=== PATIENT | male | born 1930 | race Caucasian/White ===

== ENCOUNTER → 2017-12-28 | Outpatient (CLI) | payer MEDICARE ==
--- NOTE | 2017-12-28 11:30 | CT ---
EXAMINATION TYPE: CT abdomen pelvis wo con DATE OF EXAM: 12/28/2017 HISTORY: Lt lower pelvic pain CT DLP: 613 mGycm. Automated Exposure Control for Dose Reduction was Utilized. TECHNIQUE: CT scan of the abdomen and pelvis is performed with oral but without IV contrast. COMPARISON: CT abdomen and pelvis October 23, 2014 FINDINGS: Within the limitations of a non-contrast study, the following observations are made. LUNG BASES: There is anterior right basilar linear scarring with tiny nodularity redemonstrated uncha nged from prior. There is prominent three-vessel coronary artery calcification and/or stents redemons trated. LIVER/GB: Cholecystectomy clips are redemonstrated. PANCREAS: No significant abnormality is seen. SPLEEN: No significant abnormality is seen. ADRENALS: No significant abnormality is seen. KIDNEYS: There is persistent asymmetric cortical thinning in the right kidney. There is new 1.3 cm ro und hyperdense focus axial image 40 favoring proteinaceous cyst. There is stable 1.4 cm simple appea ring cyst exophytically from upper pole left kidney seen coronal image 62. There is persistent oval exophytic thin-walled lesion anterior to left kidney measuring 8.0 cm long a xis, Hounsfield units average 18 appears to have distinct fat plane from adjacent kidney. Favor pancr eatic pseudocyst or duplication cyst. Slightly enlarged versus prior. BOWEL: The oral contrast reaches level proximal sigmoid colon. There is no suspicious small or large bowel dilatation. There are diverticula in the proximal sigmoid colon. There is no CT evidence for ac [place] diverticulitis. GENITAL ORGANS: Prostate gland is enlarged bulging on bladder base consistent with BPH. Correlate cli nically. Adjacent pelvic phleboliths are present. LYMPH NODES: No greater than 1cm abdominal or pelvic lymph nodes are appreciated. OSSEOUS STRUCTURES: There is redemonstration of posterior fusion hardware lower lumbar spine. There i s slight spondylolisthesis at this level redemonstrated. OTHER: There is moderate to severe calcified plaque of aorta extending into branch vessels. IMPRESSION: Colonic diverticulosis without CT evidence for acute diverticulitis. No significant new o r acute finding identified to account for patient's symptoms
== END | disposition home or self-care (01) ==
LOC: RADCTMAIN 09:12
PROVIDERS: ATTEND Family Medicine
DX: K57.30 Diverticulosis of large intestine without perforation or abscess without bleeding (principal)
CPT/HCPCS: 74176

== ENCOUNTER 2018-03-18 19:13 | Emergency (ER) | payer MEDICARE ==
[2018-03-18] MEDS ORDERED: diphenhydrAMINE 50 MG/ML 1 ML VIAL IVP STA (19:30)
[2018-03-18] MEDS ORDERED: methylPREDNISolone SOD SUCCI 125 MG/2 ML VIAL IV STA (19:30)
[2018-03-18] MEDS ORDERED: FAMOTIDINE 20 MG/2 ML VIAL IV STA (19:30)
--- NOTE | 2018-03-18 19:53 | ED ---
General Adult HPI - General Chief complaint: Skin/Abscess/Foreign Body Stated complaint: Insect sting Time Seen by Provider: 03/18/18 19:30 Source: patient Mode of arrival: wheelchair Limitations: no limitations - History of Present Illness Initial comments: Patient is an 88-year-old male presenting for bee stings. The patient states that just prior to arrival, he was in his yard working when nearly 30 bees stung him on the right hand and arm. He denies any shortness of breath, throat swelling, difficulty breathing, difficulty swallowing, wheezing and decided to come in. Additionally, he states that he fell earlier today after he tripped on an object landing on his buttocks. He denies any head trauma as well as significant back pain but states that the majority of his pain is off to the left side of his lower back. He has been able to ambulate since that fall. - Related Data Home Medications Medication Instructions Recorded Confirmed Pramipexole [Mirapex] 0.5 mg PO HS 09/28/15 06/21/16 Terazosin HCl 5 mg PO BID 09/28/15 06/21/16 HYDROcodone/APAP 10-325MG [[place] 1 tab PO Q6H PRN 10/14/15 06/21/16 10-325] Insulin Glargine [Lantus] 10 - 12 unit SQ HS 10/14/15 06/21/16 rOPINIRole HCL [Requip] 0.5 mg PO HS 10/14/15 06/21/16 Aspirin 81 mg PO DAILY 06/21/16 06/21/16 Fenofibrate Nanocrystallized 145 mg PO DAILY 06/21/16 06/21/16 [Fenofibrate] Levothyroxine Sodium [Synthroid] 100 mcg PO QAM 06/21/16 06/21/16 Metoprolol Tartrate [Lopressor] 25 mg PO BID 06/21/16 06/21/16 glipiZIDE [Glucotrol] 10 mg PO AC-BID 06/21/16 06/21/16 Previous Rx's Medication Instructions Recorded Nitroglycerin Sl Tabs [Nitrostat] 0.4 mg SUBLINGUAL Q5M PRN #0 tab 12/29/15 Lisinopril [Prinivil] 20 mg PO DAILY #30 tablet 06/23/16 Metoprolol Tartrate [Lopressor] 12.5 mg PO BID #30 tab 06/23/16 EPINEPHrine (Auto Inject) [Epipen] 0.3 mg IM ONCE PRN #2 syringe 03/18/18 predniSONE 50 mg PO DAILY #5 tablet 03/18/18 Allergies Allergy/AdvReac Type Severity Reaction Status Date / Time hydromorphone HCl Allergy Dyspnea Verified 03/18/18 19:22 [From Dilaudid] and Rash Review of Systems ROS Statement: Those systems with pertinent positive or pertinent negative responses have been documented in the HPI. Constitutional: Negative for chills, fatigue and fever. HENT: Negative for congestion. Respiratory: Negative for chest tightness, shortness of breath and wheezing. Negative for cough Cardiovascular: Negative for chest pain and palpitations. Gastrointestinal: Negative for abdominal pain. Negative for abdominal distention , diarrhea, nausea and vomiting. Genitourinary: Negative for dysuria. Musculoskeletal: Negative for back pain, neck pain and neck stiffness. Skin: Positive for erythema of the right lower hand and swelling Neurological: Negative for dizziness, speech difficulty, weakness and light- headedness. Psychiatric/Behavioral: Negative for agitation and confusion. Negative for anxiety ROS Other: All systems not noted in ROS Statement are negative. Past Medical History Past Medical History: Atrial Fibrillation, Chest Pain / Angina, Diabetes Mellitus, Hypertension, Myocardial Infarction ([place]) Additional Past Medical History / Comment(s): [place] with stent, Last Myocardial Infarction Date:: 2011 History of Any Multi-Drug Resistant Organisms: None Reported Past Surgical History: Adenoidectomy, Appendectomy, Back Surgery, Cholecystectomy, Heart Catheterization With Stent, Orthopedic Surgery Additional Past Surgical History / Comment(s): right carotid endarterectomy Past Anesthesia/Blood Transfusion Reactions: No Reported Reaction Date of Last Stent Placement:: 2011 Past Psychological History: No Psychological Hx Reported Smoking Status: Former smoker Past Alcohol Use History: None Reported Past Drug Use History: None Reported - Past Family History Mother Family Medical History: AFIB Brother(s) Family Medical History: COPD General Exam - General Exam Comments Initial Comments: Constitutional: Pt is oriented to person, place, and time. Pt appears well- developed and well-nourished. No distress. Mouth: No edema or swelling of the oropharynx or tongue/lips Head: Normocephalic and atraumatic. Eyes: EOM are normal. Neck: Normal range of motion. Neck supple. Cardiovascular: Normal rate, regular rhythm, S1 normal, S2 normal and normal heart sounds. Exam reveals no gallop and no friction rub. No murmur heard. Pulmonary/Chest: Effort normal and breath sounds normal. No tachypnea and no bradypnea. No respiratory distress. No wheezes or rales noted. Abdominal: Soft. Bowel sounds are normal. Pt exhibits no shifting dullness, no distension, no pulsatile liver, no fluid wave, no abdominal bruit and no ascites. There is no tenderness. There is no rigidity, no rebound, no guarding, no tenderness at McBurney's point and negative Zepeda's sign. Musculoskeletal: Normal range of motion. Neurological: Pt is alert and oriented to person, place, and time. No cranial nerve deficit. Skin: Skin is warm and dry. No rash noted. Pt is not diaphoretic. There is diffuse erythema and effusion of the right lower arm with mild streaking on the anterior aspect of the right arm. Psychiatric: Pt has a normal mood and affect. Pt behavior is normal. Thought content normal. Limitations: no limitations Course Vital Signs 03/18/18 03/18/18 03/18/18 19:19 21:04 21:30 Temperature 97.9 F 98.2 F Pulse Rate 61 67 Respiratory 18 17 Rate Blood Pressure 154/69 157/99 O2 Sat by Pulse 100 98 Oximetry Medical Decision Making - Medical Decision Making Patient was given Solu-Medrol, Benadryl, Pepcid and noted to have significant improvement in the swelling of the right hand and erythema significantly decreased. Because the patient had no respiratory symptoms, it was felt that the patient could be safely discharged home with a prescription for prednisone as well as epinephrine pens. Daughter was bedside for this discussion and also felt comfortable taking the patient home. Patient was advised to follow the PCP in the next 1-2 days and/or return to emergency department if he develops worsening symptoms or respiratory symptoms as well. Patient was agreeable to plan. Disposition Clinical Impression: Allergic reaction, Bee sting reaction Disposition: HOME SELF-CARE Condition: Good Instructions: General Allergic Reaction (ED) Prescriptions: EPINEPHrine (Auto Inject) [Epipen] 0.3 mg IM ONCE PRN #2 syringe PRN Reason: Anaphylaxis predniSONE 50 mg PO DAILY #5 tablet Is patient prescribed a controlled substance at d/c from ED?: No Referrals: None,Stated [Primary Care Provider] - 1-2 days Time of Disposition: 21:20
--- NOTE | 2018-03-18 20:36 | XR ---
EXAMINATION TYPE: XR Hip Complete LT DATE OF EXAM: 03/18/2018 CLINICAL HISTORY: Lower back pain and left hip pain TECHNIQUE: AP and frogleg views of the left hip are obtained. COMPARISON: None. FINDINGS: There is no acute fracture/dislocation evident in the left hip. The joint space in the le ft hip displays moderate arthropathy with subchondral cysts, joint space narrowing and acetabular mariah f sclerosis. The overlying soft tissue appears unremarkable. Cam deformity of the left femoral head neck junction is seen as an osseous protuberance. Partial visualization of postsurgical changes of th e lumbosacral spine are noted. IMPRESSION: There is no acute fracture or dislocation in the left hip. Moderate left femoral acetabu lar arthropathy. Left femoral head neck junction cam deformity that predisposes the patient to rn international al impingement syndrome.
--- NOTE | 2018-03-18 20:38 | XR ---
EXAMINATION TYPE: XR lumbar spine 2 or 3V DATE OF EXAM: 03/18/2018 CLINICAL HISTORY: Back pain TECHNIQUE: Frontal and lateral images of the lumbar spine are obtained. COMPARISON: CT abdomen pelvis dated 12/28/2017 FINDINGS: There are 5 lumbar type vertebral bodies identified. Postsurgical changes at L5-S1 are see n with posterior element resection. There is a mild dextroscoliotic curvature of the lumbar spine. Th ere is diffuse osseous demineralization, specifically limiting evaluation of the lower thoracic spine . If there is point tenderness in the thoracic spine additional radiograph could be performed. There is a 1 anterolisthesis of L5 on S1, surgically fixated. Multilevel moderate degenerative change of the lumbar spine is demonstrated as endplate sclerosis, facet arthropathy, intervertebral disc sp torin narrowing and small anterior osteophytes. Extensive vascular calcifications are seen of the abdom inal aorta and its branches. Cholecystectomy clips reside within the right upper quadrant. The lumbar spine shows satisfactory alignment without evidence of acute fracture or dislocation. Vertebral body heights and disk space heights are within normal limits. IMPRESSION: No acute fracture or dislocation is seen in the lumbar spine. Surgically fixated malalig nment of L5-S1. Diffuse osseous demineralization. Multilevel moderate degenerative disc disease.
[2018-03-18 21:06] VITALS: BP 157/99; PULSE 67; RESP 17
[2018-03-18 21:31] VITALS: TEMP 98.2
== END 2018-03-18 21:34 | disposition home or self-care (01) ==
LOC: EC 19:13
DX: T63.441A Toxic effect of venom of bees, accidental (unintentional), initial encounter (principal); M54.5 Low back pain; E11.9 Type 2 diabetes mellitus without complications; I10 Essential (primary) hypertension; I25.2 Old myocardial infarction; Z87.891 Personal history of nicotine dependence; Z79.4 Long term (current) use of insulin; Z79.82 Long term (current) use of aspirin; Z79.899 Other long term (current) drug therapy; Z88.5 Allergy status to narcotic agent; Z95.5 Presence of coronary angioplasty implant and graft; Z98.890 Other specified postprocedural states; W18.09XA Striking against other object with subsequent fall, initial encounter
CPT/HCPCS: 72100; 73502; 99282; 96374; 96375 ×2; J1200; J2930

== ENCOUNTER 2018-07-07 15:14 | Emergency (ER) | payer MEDICARE ==
--- NOTE | 2018-07-07 16:14 | XR ---
EXAMINATION TYPE: XR shoulder complete LT DATE OF EXAM: 07/07/2018 CLINICAL HISTORY: pain COMPARISON: NONE TECHNIQUE: Three views of the left shoulder are obtained. FINDINGS: There is no acute fracture/dislocation evident. The acromioclavicular and glenohumeral katelyn int spaces appear moderately narrowed. The visualized ribs are intact and unremarkable. IMPRESSION: 1. There is no acute fracture or dislocation. ICD 10 NO FRACTURE, INITIAL EVALUATION
--- NOTE | 2018-07-07 17:20 | ED ---
General Adult HPI - General Chief complaint: Fall Stated complaint: Fall, shoulder pain Time Seen by Provider: 07/07/18 16:24 Source: patient, RN notes reviewed Mode of arrival: wheelchair Limitations: no limitations - History of Present Illness Initial comments: Patient's an 88-year-old male presents to the emergency room today with a chief complaint fall that occurred earlier today. Patient does smoke approximately 2 hours prior to arrival slipped on some ice and fell down landing on the left shoulder hitting left side of his head. Patient states he did not lose consciousness. Patient denies any headache. Patient does admit to pain in the left shoulder is worse with any movements of flexion and extension. He denies any other complaints or symptoms. Patient denies any recent fever, chills, shortness of breath, chest pain, back pain, abdominal pain, nausea or vomiting, numbness or tingling, headaches or visual changes, or any other complaints. - Related Data Home Medications Medication Instructions Recorded Confirmed Pramipexole [Mirapex] 0.5 mg PO HS 09/28/15 06/21/16 Terazosin HCl 5 mg PO BID 09/28/15 06/21/16 HYDROcodone/APAP 10-325MG [[place] 1 tab PO Q6H PRN 10/14/15 06/21/16 10-325] Insulin Glargine [Lantus] 10 - 12 unit SQ HS 10/14/15 06/21/16 rOPINIRole HCL [Requip] 0.5 mg PO HS 10/14/15 06/21/16 Aspirin 81 mg PO DAILY 06/21/16 06/21/16 Fenofibrate Nanocrystallized 145 mg PO DAILY 06/21/16 06/21/16 [Fenofibrate] Levothyroxine Sodium [Synthroid] 100 mcg PO QAM 06/21/16 06/21/16 Metoprolol Tartrate [Lopressor] 25 mg PO BID 06/21/16 06/21/16 glipiZIDE [Glucotrol] 10 mg PO AC-BID 06/21/16 06/21/16 Previous Rx's Medication Instructions Recorded Nitroglycerin Sl Tabs [Nitrostat] 0.4 mg SUBLINGUAL Q5M PRN #0 tab 12/29/15 Lisinopril [Prinivil] 20 mg PO DAILY #30 tablet 06/23/16 Metoprolol Tartrate [Lopressor] 12.5 mg PO BID #30 tab 06/23/16 EPINEPHrine (Auto Inject) [Epipen] 0.3 mg IM ONCE PRN #2 syringe 03/18/18 predniSONE 50 mg PO DAILY #5 tablet 03/18/18 Allergies Allergy/AdvReac Type Severity Reaction Status Date / Time hydromorphone HCl Allergy Dyspnea Verified 07/07/18 15:37 [From Dilaudid] and Rash Review of Systems ROS Statement: Those systems with pertinent positive or pertinent negative responses have been documented in the HPI. ROS Other: All systems not noted in ROS Statement are negative. Past Medical History Past Medical History: Atrial Fibrillation, Chest Pain / Angina, Diabetes Mellitus, Hypertension, Myocardial Infarction ([place]) Additional Past Medical History / Comment(s): [place] with stent, Last Myocardial Infarction Date:: 2011 History of Any Multi-Drug Resistant Organisms: None Reported Past Surgical History: Adenoidectomy, Appendectomy, Back Surgery, Cholecystectomy, Heart Catheterization With Stent, Orthopedic Surgery Additional Past Surgical History / Comment(s): right carotid endarterectomy Past Anesthesia/Blood Transfusion Reactions: No Reported Reaction Date of Last Stent Placement:: 2011 Past Psychological History: No Psychological Hx Reported Smoking Status: Former smoker Past Alcohol Use History: None Reported Past Drug Use History: None Reported - Past Family History Mother Family Medical History: AFIB Brother(s) Family Medical History: COPD General Exam - General Exam Comments Initial Comments: General: The patient is awake and alert, in no distress, and does not appear acutely ill. Eye: Pupils are equal, round and reactive to light. Extra-ocular movements are intact. No nystagmus. There is normal conjunctiva bilaterally. No signs of icterus. Ears, nose, mouth and throat: There are moist mucous membranes and no oral lesions. Neck: The neck is supple, there is no tenderness or JVD. Cardiovascular: There is a regular rate and rhythm. No murmur, rub or gallop is appreciated. Respiratory: Lungs are clear to auscultation, respirations are non-labored, breath sounds are equal. No wheezes, stridor, rales, or rhonchi. Musculoskeletal: She does have some bruising over the lateral aspect of left shoulder. He shows limited range of motion with flexion and extension due to pain. Patient has no tenderness to the cervical, thoracic or lumbar spine. No step-off deformity appreciated. No tenderness to the ribs. Shows full range of motion of his neck. Sensations are intact. Radial pulses 2+. Strength to the left shoulder unable be assessed due to pain. Neurological: A&O x 3. CN II-XII intact, There are no obvious motor or sensory deficits. Coordination appears grossly intact. Speech is normal. Skin: Skin is warm and dry and no rashes or lesions are noted. Psychiatric: Cooperative, appropriate mood & affect, normal judgment. Limitations: no limitations Course Vital Signs 07/07/18 15:35 Temperature 98.4 F Pulse Rate 75 Respiratory 16 Rate Blood Pressure 140/70 O2 Sat by Pulse 94 L Oximetry Medical Decision Making - Medical Decision Making Patient reexamined at this time. Shortness of distress. CT of the head and neck negative for any acute abnormality. X-ray of the left shoulder is negative. Results were discussed with patient. He'll be given an arm sling for comfort. He is going to orthopedics for further evaluation of the left shoulder. Advised ice affected area. Advised return for any other concerns Disposition Clinical Impression: Fall, Injury of left shoulder Disposition: HOME SELF-CARE Condition: Good Instructions: Rotator Cuff Injury (ED) Additional Instructions: Please use medication as discussed. Please follow-up with orthopedic/family doctor in the next 2 days of symptoms have not improved. Please return to emergency room if the symptoms increase or worsen or for any other concerns. Is patient prescribed a controlled substance at d/c from ED?: No Referrals: None,Stated [Primary Care Provider] - 1-2 days Marcial Thompson DO [Doctor of Osteopathic Medicine] - 1-2 days Time of Disposition: 18:05
--- NOTE | 2018-07-07 17:36 | CT ---
EXAMINATION TYPE: CT brain federico baez DATE OF EXAM: 07/07/2018 COMPARISON: None HISTORY: Fall headache. Neck pain. CT DLP: 1016.8 mGycm Automated exposure control for dose reduction was used. TECHNIQUE: CT scan of the head and cervical spine are performed without contrast. FINDINGS: There is diffuse cerebral cortical atrophy. There is no mass effect nor midline shift. Th ere is no sign of intracranial hemorrhage. The calvarium is intact. Cervical vertebra have normal alignment. Disc spaces are fairly normal for age. There is mild spurrin g of the endplates. Posterior elements are intact. The skull base is intact. There is no evidence of cervical spine fracture. IMPRESSION: Cerebral atrophy. No acute intracranial abnormality. Minor degenerative disc changes in the cervical spine. No fracture.
[2018-07-07 18:32] VITALS: BP 179/79; PULSE 67; RESP 18; TEMP 99.1
== END 2018-07-07 18:31 | disposition home or self-care (01) ==
LOC: EC 15:14
DX: S40.012A Contusion of left shoulder, initial encounter (principal); I10 Essential (primary) hypertension; E11.9 Type 2 diabetes mellitus without complications; I48.91 Unspecified atrial fibrillation; I25.2 Old myocardial infarction; Z87.891 Personal history of nicotine dependence; Z88.5 Allergy status to narcotic agent; Z79.4 Long term (current) use of insulin; Z79.82 Long term (current) use of aspirin; Z79.899 Other long term (current) drug therapy; Z95.818 Presence of other cardiac implants and grafts; W00.0XXA Fall on same level due to ice and snow, initial encounter; Y92.89 Other specified places as the place of occurrence of the external cause
CPT/HCPCS: 70450; 72125; 99284

== ENCOUNTER 2019-03-01 19:39 | Emergency (ER) | payer MEDICARE ==
[2019-03-01 19:48] VITALS: TEMP 98.1
[2019-03-01 20:05] LABS: Glucose,Whole Blood 220 mg/dL (75-99)
--- NOTE | 2019-03-01 20:12 | ED ---
General Adult HPI - General Chief complaint: Fall Stated complaint: Fall, back pain, head injury Time Seen by Provider: 03/01/19 19:51 Source: patient, family, RN notes reviewed Mode of arrival: ambulatory Limitations: no limitations - History of Present Illness Initial comments: Patient is a pleasant 89-year-old male presenting to the emergency department following a fall. Patient fell approximately 2 steps. Patient did strike his head however did not lose consciousness. No headache. No weakness or change in mental status. Patient also struck his back. Patient states he did have some lower back discomfort however that has resolved. Patient still has some discomfort of his mid back, between the shoulder blades. Patient states this hurts with movement and deep breaths. Patient denies any chest discomfort. No abdominal pain. No neck pain. Patient does take Eliquis due to history of atrial fibrillation. - Related Data Home Medications Medication Instructions Recorded Confirmed Pramipexole [Mirapex] 0.5 mg PO HS 09/28/15 03/01/19 Insulin Glargine [Lantus] 10 unit SQ HS 10/14/15 03/01/19 Aspirin 81 mg PO DAILY 06/21/16 03/01/19 Metoprolol Tartrate [Lopressor] 25 mg PO BID 06/21/16 03/01/19 glipiZIDE [Glucotrol] 10 mg PO AC-BID 06/21/16 03/01/19 Apixaban [Eliquis] 2.5 mg PO BID 03/01/19 03/01/19 Gemfibrozil [Lopid] 600 mg PO BID 03/01/19 03/01/19 Levothyroxine Sodium 112 mcg PO DAILY 03/01/19 03/01/19 Lisinopril-Hctz 20-25 mg 1 tab PO DAILY 03/01/19 03/01/19 [Zestoretic 20-25] Tamsulosin HCl [Flomax] 0.4 mg PO DAILY 03/01/19 03/01/19 Previous Rx's Medication Instructions Recorded Nitroglycerin Sl Tabs [Nitrostat] 0.4 mg SUBLINGUAL Q5M PRN #0 tab 12/29/15 EPINEPHrine (Auto Inject) [Epipen] 0.3 mg IM ONCE PRN #2 syringe 03/18/18 Allergies Allergy/AdvReac Type Severity Reaction Status Date / Time hydromorphone HCl Allergy Dyspnea Verified 03/01/19 21:14 [From Dilaudid] and Rash Review of Systems ROS Statement: Those systems with pertinent positive or pertinent negative responses have been documented in the HPI. ROS Other: All systems not noted in ROS Statement are negative. Constitutional: Denies: fever Eyes: Denies: eye pain ENT: Denies: ear pain Respiratory: Denies: cough Cardiovascular: Denies: chest pain Endocrine: Denies: fatigue Gastrointestinal: Denies: abdominal pain Genitourinary: Denies: dysuria Musculoskeletal: Reports: as per HPI Skin: Denies: rash Neurological: Denies: weakness Past Medical History Past Medical History: Atrial Fibrillation, Chest Pain / Angina, Diabetes Cami litus, Hypertension, Myocardial Infarction (MT) Additional Past Medical History / Comment(s): MT with stent, Last Myocardial Infarction Date:: 2011 History of Any Multi-Drug Resistant Organisms: None Reported Past Surgical History: Adenoidectomy, Appendectomy, Back Surgery, Cholecystectomy, Heart Catheterization With Stent, Orthopedic Surgery Additional Past Surgical History / Comment(s): right carotid endarterectomy Past Anesthesia/Blood Transfusion Reactions: No Reported Reaction Date of Last Stent Placement:: 2011 Past Psychological History: No Psychological Hx Reported Smoking Status: Former smoker Past Alcohol Use History: None Reported Past Drug Use History: None Reported - Past Family History Mother Family Medical History: AFIB Brother(s) Family Medical History: COPD General Exam Limitations: no limitations General appearance: alert, in no apparent distress Head exam: Present: atraumatic Eye exam: Present: normal appearance, PERRL, EOMI. Absent: nystagmus ENT exam: Present: normal oropharynx Neck exam: Present: normal inspection. Absent: tenderness Respiratory exam: Present: normal lung sounds bilaterally Cardiovascular Exam: Present: regular rate, normal rhythm GI/Abdominal exam: Present: soft. Absent: distended, tenderness Extremities exam: Present: normal inspection, full ROM. Absent: tenderness Back exam: Present: normal inspection. Absent: tenderness, vertebral tenderness Neurological exam: Present: alert, CN II-XII intact. Absent: motor sensory deficit Expanded Neurological exam: Present: protecting the airway Patient oriented to: Absent: time (Family states this is normal) Speech: Present: fluid speech Cranial nerves: EOM's Intact: Normal Motor strength exam: RUE: 5, LUE: 5, RLE: 5, LLE: 5 Eye Response: (4) open spontaneously Motor Response: (6) obeys commands Verbal Response: (4) confused conversation Psychiatric exam: Present: normal affect, normal mood Skin exam: Present: normal color Course Vital Signs 03/01/19 19:44 Temperature 98.1 F Pulse Rate 73 Respiratory 18 Rate Blood Pressure 162/83 O2 Sat by Pulse 96 Oximetry - Reevaluation(s) Reevaluation #1: 03/01/19 20:07 Case was discussed with Dr. Rebollar. EKG Findings - EKG Comments: EKG Findings:: Sinus bradycardia 59. MS 172. QRS 88. QT 396. QTc 392. Normal axis. Normal QRS. Nonspecific ST-T. Medical Decision Making - Medical Decision Making Patient reevaluated and resting comfortably in bed. Patient and family updated on results. - Lab Data Result diagrams: 03/01/19 20:00 03/01/19 20:00 Lab Results 03/01/19 03/01/19 03/01/19 Range/Units 19:59 20:00 20:00 WBC 6.2 (3.8-10.6) k/uL RBC 3.99 L (4.30-5.90) m/uL Hgb 11.6 L (13.0-17.5) gm/dL Hct 34.0 L (39.0-53.0) % MCV 85.4 (80.0-100.0) fL MCH 29.1 (25.0-35.0) pg MCHC 34.1 (31.0-37.0) g/dL RDW 13.2 (11.5-15.5) % Plt Count 283 (150-450) k/uL Neutrophils % 62 % Lymphocytes % 27 % Monocytes % 6 % Eosinophils % 1 % Basophils % 1 % Neutrophils # 3.9 (1.3-7.7) k/uL Lymphocytes # 1.7 (1.0-4.8) k/uL Monocytes # 0.4 (0-1.0) k/uL Eosinophils # 0.1 (0-0.7) k/uL Basophils # 0.0 (0-0.2) k/uL PT (9.0-12.0) sec INR (<1.2) APTT (22.0-30.0) sec Sodium 137 (137-145) mmol/L Potassium 4.1 (3.5-5.1) mmol/L Chloride 103 (98-107) mmol/L Carbon Dioxide 20 L (22-30) mmol/L Anion Gap 14 mmol/L BUN 38 H (9-20) mg/dL Creatinine 1.62 H (0.66-1.25) mg/dL Est GFR (CKD-EPI)AfAm 43 (>60 ml/min/1.73 sqM) Est GFR (CKD-EPI)NonAf 37 (>60 ml/min/1.73 sqM) Glucose 193 H (74-99) mg/dL POC Glucose (mg/dL) 220 H (75-99) mg/dL POC Glu [employer]ating [employer] ID Ronan Morris Plasma Lactic Acid Oswald (0.7-2.0) mmol/L Calcium 10.1 (8.4-10.2) mg/dL Total Bilirubin 0.4 (0.2-1.3) mg/dL AST 18 (17-59) U/L ALT 21 (21-72) U/L Alkaline Phosphatase 79 (38-126) U/L Total Creatine Kinase (55-170) U/L CK-MB (CK-2) (0.0-2.4) ng/mL CK-MB (CK-2) Rel Index Troponin I (0.000-0.034) ng/mL Total Protein 7.2 (6.3-8.2) g/dL Albumin 4.6 (3.5-5.0) g/dL Amylase 59 (30-110) U/L Lipase 147 (23-300) U/L Serum Alcohol <10 mg/dL Blood Type Blood Type Confirm Blood Type Recheck Antibody Screen Spec Expiration Date 03/01/19 03/01/19 03/01/19 Range/Units 20:00 20:00 20:00 WBC (3.8-10.6) k/uL RBC (4.30-5.90) m/uL Hgb (13.0-17.5) gm/dL Hct (39.0-53.0) % MCV (80.0-100.0) fL MCH (25.0-35.0) pg MCHC (31.0-37.0) g/dL RDW (11.5-15.5) % Plt Count (150-450) k/uL Neutrophils % % Lymphocytes % % Monocytes % % Eosinophils % % Basophils % % Neutrophils # (1.3-7.7) k/uL Lymphocytes # (1.0-4.8) k/uL Monocytes # (0-1.0) k/uL Eosinophils # (0-0.7) k/uL Basophils # (0-0.2) k/uL PT 9.6 (9.0-12.0) sec INR 0.9 (<1.2) APTT 23.4 (22.0-30.0) sec Sodium (137-145) mmol/L Potassium (3.5-5.1) mmol/L Chloride (98-107) mmol/L Carbon Dioxide (22-30) mmol/L Anion Gap mmol/L BUN (9-20) mg/dL Creatinine (0.66-1.25) mg/dL Est GFR (CKD-EPI)AfAm (>60 ml/min/1.73 sqM) Est GFR (CKD-EPI)NonAf (>60 ml/min/1.73 sqM) Glucose (74-99) mg/dL POC Glucose (mg/dL) (75-99) mg/dL POC Glu Imp[employer]ating Tank Operator ID Plasma Lactic Acid Oswald (0.7-2.0) mmol/L Calcium (8.4-10.2) mg/dL Total Bilirubin (0.2-1.3) mg/dL AST (17-59) U/L ALT (21-72) U/L Alkaline Phosphatase (38-126) U/L Total Creatine Kinase 99 (55-170) U/L CK-MB (CK-2) 1.7 (0.0-2.4) ng/mL CK-MB (CK-2) Rel Index 1.7 Troponin I <0.012 (0.000-0.034) ng/mL Total Protein (6.3-8.2) g/dL Albumin (3.5-5.0) g/dL Amylase (30-110) U/L Lipase (23-300) U/L Serum Alcohol mg/dL Blood Type A Positive Blood Type Confirm Blood Type Recheck CABO Indicated Antibody Screen NEGATIVE Spec Expiration Date 03/04/2019 - 2300 07/11/19 07/11/19 Range/Units 20:00 20:05 WBC (3.8-10.6) k/uL RBC (4.30-5.90) m/uL Hgb (13.0-17.5) gm/dL Hct (39.0-53.0) % MCV (80.0-100.0) fL MCH (25.0-35.0) pg MCHC (31.0-37.0) g/dL RDW (11.5-15.5) % Plt Count (150-450) k/uL Neutrophils % % Lymphocytes % % Monocytes % % Eosinophils % % Basophils % % Neutrophils # (1.3-7.7) k/uL Lymphocytes # (1.0-4.8) k/uL Monocytes # (0-1.0) k/uL Eosinophils # (0-0.7) k/uL Basophils # (0-0.2) k/uL PT (9.0-12.0) sec INR (<1.2) APTT (22.0-30.0) sec Sodium (137-145) mmol/L Potassium (3.5-5.1) mmol/L Chloride (98-107) mmol/L Carbon Dioxide (22-30) mmol/L Anion Gap mmol/L BUN (9-20) mg/dL Creatinine (0.66-1.25) mg/dL Est GFR (CKD-EPI)AfAm (>60 ml/min/1.73 sqM) Est GFR (CKD-EPI)NonAf (>60 ml/min/1.73 sqM) Glucose (74-99) mg/dL POC Glucose (mg/dL) (75-99) mg/dL POC Glu Imp[employer]ating Tank Operator ID Plasma Lactic Acid Oswald 1.4 (0.7-2.0) mmol/L Calcium (8.4-10.2) mg/dL Total Bilirubin (0.2-1.3) mg/dL AST (17-59) U/L ALT (21-72) U/L Alkaline Phosphatase (38-126) U/L Total Creatine Kinase (55-170) U/L CK-MB (CK-2) (0.0-2.4) ng/mL CK-MB (CK-2) Rel Index Troponin I (0.000-0.034) ng/mL Total Protein (6.3-8.2) g/dL Albumin (3.5-5.0) g/dL Amylase (30-110) U/L Lipase (23-300) U/L Serum Alcohol mg/dL Blood Type Blood Type Confirm A Positive Blood Type Recheck Antibody Screen Spec Expiration Date - Radiology Data Radiology results: report reviewed (Computed tomography scan of the brain shows no acute abnormality. Atrophy is present.), image reviewed (Chest and pelvis x- ray revealed no acute process. Thoracic spine x-ray shows mild degenerative changes. No fracture.) Disposition Clinical Impression: Fall, Head injury Disposition: HOME SELF-CARE Condition: Stable Instructions (If sedation given, give patient instructions): Fall Prevention for Older Adults (ED), Head Injury (ED) Additional Instructions: Hold Eliquis, your anticoagulant for the next 2 days. Please follow-up with primary care physician in the next day or 2 for recheck. Return for confusion, weakness, change in mental status, persistent vomiting, worsening symptoms or other concerns. Is patient prescribed a controlled substance at d/c from ED?: No Referrals: Sachi Spencer MD [STAFF PHYSICIAN] - 1-2 days Arias Padilla MD [STAFF PHYSICIAN] - 1-2 days Orlin Driver MD [STAFF PHYSICIAN] - 1-2 days Time of Disposition: 21:29
--- NOTE | 2019-03-01 20:18 | XR ---
EXAMINATION TYPE: XR chest 1V portable DATE OF EXAM: 03/01/2019 COMPARISON: 06/21/2016 HISTORY: Fall. Chest pain. TECHNIQUE: Single frontal view of the chest is obtained. FINDINGS: Heart is normal. Lungs are clear of consolidation. There is no heart failure. Thoracic aor ta is atheromatous. There are chest leads. There is no pleural effusion. IMPRESSION: No active cardiopulmonary disease. No change.
--- NOTE | 2019-03-01 20:20 | XR ---
EXAMINATION TYPE: XR pelvis AP view DATE OF EXAM: 03/01/2019 COMPARISON: NONE HISTORY: Fall. Pain. TECHNIQUE: Single view FINDINGS: Pelvic ring is intact. Proximal femurs and hip joints are intact. There is mild acetabular spurring. There is fusion surgery in the lower lumbar spine. Sacroiliac joints are intact. IMPRESSION: No acute abnormality of the pelvis. No fracture.
[2019-03-01 20:31] LABS: Basophils % (A) 1 %; Eosinophils # (A) 0.1 k/uL (0-0.7); Eosinophils % (A) 1 %; HGB 11.6 gm/dL (13.0-17.5); Lymphocytes # (A) 1.7 k/uL (1.0-4.8); Lymphocytes % (A) 27 %; MCH 29.1 pg (25.0-35.0); MCHC 34.1 g/dL (31.0-37.0); MCV 85.4 fL (80.0-100.0); Mean Platelet Volume 7.2; Monocytes # (A) 0.4 k/uL (0-1.0); Monocytes % (A) 6 %; Neutrophils # (A) 3.9 k/uL (1.3-7.7); Neutrophils % (A) 62 %; Platelet Count 283 k/uL (150-450); RBC 3.99 m/uL (4.30-5.90); RDW 13.2 % (11.5-15.5); WBC 6.2 k/uL (3.8-10.6)
[2019-03-01 20:37] LABS: ALT 21 U/L (21-72); AST 18 U/L (17-59); African American GFR (CKD) 43 (>60 ml/min/1.73 sqM); Albumin 4.6 g/dL (3.5-5.0); Alcohol <10 mg/dL; Alkaline Phosphatase 79 U/L (38-126); Amylase 59 U/L (30-110); Anion Gap 14 mmol/L; Blood Urea Nitrogen 38 mg/dL (9-20); Calcium 10.1 mg/dL (8.4-10.2); Carbon Dioxide 20 mmol/L (22-30); Chloride 103 mmol/L (98-107); Glucose 193 mg/dL (74-99); Lipase 147 U/L (23-300); Potassium 4.1 mmol/L (3.5-5.1); Sodium 137 mmol/L (137-145); Total Bilirubin 0.4 mg/dL (0.2-1.3); Total Protein 7.2 g/dL (6.3-8.2)
[2019-03-01 20:40] LABS: INR 0.9 (<1.2); Partial Thromboplastin Time 23.4 sec (22.0-30.0); Prothrombin Time 9.6 sec (9.0-12.0)
--- NOTE | 2019-03-01 20:43 | CT ---
EXAMINATION TYPE: CT brain wo con DATE OF EXAM: 03/01/2019 COMPARISON: 07/07/2018 HISTORY: fall CT DLP: 1188.4 mGycm Automated exposure control for dose reduction was used. FINDINGS: There is cerebral cortical atrophy. There is no mass effect nor midline shift. There is no sign of in tracranial hemorrhage. Calvarium appears intact. IMPRESSION: CEREBRAL ATROPHY. NO ACUTE INTRACRANIAL ABNORMALITY. NO CHANGE.
[2019-03-01 20:48] LABS: Creatine Kinase 99 U/L (55-170)
[2019-03-01 21:01] LABS: Creatine Kinase MB 1.7 ng/mL (0.0-2.4); Troponin I <0.012 ng/mL (0.000-0.034)
--- NOTE | 2019-03-01 21:07 | XR ---
EXAMINATION TYPE: XR thoracic spine complete DATE OF EXAM: 03/01/2019 COMPARISON: NONE HISTORY: Back pain TECHNIQUE: 3 views FINDINGS: Thoracic vertebra have normal alignment. Posterior elements are intact. There is some spurr ing of the endplates. There is no compression fracture. There is no paraspinal mass. IMPRESSION: Mild degenerative spurring. No fracture seen.
[2019-03-01] MEDS ORDERED: ACETAMINOPHEN TAB 500 MG TAB PO STA (21:28)
[2019-03-01 21:50] LABS: Appearance,Urine Clear (Clear); Bilirubin,Urine Negative (Negative); Blood,Urine Negative (Negative); Color,Urine Yellow; Glucose,Urine (UA) 4+ (Negative); Ketones,Urine Negative (Negative); Leukocyte Esterase,Urine Moderate (Negative); Nitrite,Urine Negative (Negative); PH, Urine 5.5 (5.0-8.0); Protein,Urine Trace (Negative); RBC,Urine 3 /hpf (0-5); Specific Gravity,Urine 1.013 (1.001-1.035); Squamous Epithelial Cell,Urine <1 /hpf (0-4); Urobilinogen,Urine <2.0 mg/dL (<2.0); WBC,Urine 3 /hpf (0-5)
[2019-03-01 21:58] LABS: Amphetamine Screen,Urine Not Detected (NotDetected); Barbiturate Screen,Urine Not Detected (NotDetected); Benzodiazepines Screen,Urine Not Detected (NotDetected); Cocaine Screen,Urine Not Detected (NotDetected); Methadone Screen, Urine Not Detected (NotDetected); Opiate Screen,Urine Not Detected (NotDetected); Oxycodone Screen, Urine Not Detected (NotDetected); Phencyclidine Screen,Urine Not Detected (NotDetected); Tricyclic Antidepressant,Urine Not Detected (NotDetected); Urn Cannabinoid Scrn Not Detected (NotDetected)
[2019-03-02 03:33] VITALS: BP 145/61; PULSE 59; RESP 17
== END 2019-03-01 21:45 | disposition home or self-care (01) ==
LOC: EC 19:39
DX: S09.90XA Unspecified injury of head, initial encounter (principal); I48.91 Unspecified atrial fibrillation; E11.9 Type 2 diabetes mellitus without complications; I10 Essential (primary) hypertension; I25.2 Old myocardial infarction; Z87.891 Personal history of nicotine dependence; Z79.4 Long term (current) use of insulin; Z79.82 Long term (current) use of aspirin; Z79.01 Long term (current) use of anticoagulants; Z79.890 Hormone replacement therapy; Z79.899 Other long term (current) drug therapy; Z88.5 Allergy status to narcotic agent; Z95.5 Presence of coronary angioplasty implant and graft; W10.9XXA Fall (on) (from) unspecified stairs and steps, initial encounter; Y92.009 Unspecified place in unspecified non-institutional (private) residence as the place of occurrence of the external cause
CPT/HCPCS: 36415; 93005; 86900; 86901; 80053; 82150; 82550; 82553; 83605; 83690; 84484; 85025; 85610; 85730; 86850; 81001; 80306; 72072; 72170; 71045; 70450; 99284; G0480; 80320

== ENCOUNTER → 2019-05-11 | Outpatient (CLI) | payer OTHER ==
--- NOTE | 2019-05-11 10:37 | US ---
EXAMINATION TYPE: US kidneys/renal and bladder DATE OF EXAM: 05/11/2019 COMPARISON: CT CLINICAL HISTORY: R94.4 ABN KIDNEY FUNCTIONS. ABN labs EXAM MEASUREMENTS: Right Kidney: 9.1 x 4.6 x 4.3 cm Left Kidney: 11.8 x 5.9 x 4.4 cm Right Kidney: Hypoechoic lesion upper pole= 2.3 x 1.9 x 1.8 cm, cortical thinning Left Kidney: Cyst upper pole= 2.4 x 1.9 x 1.8 cm/ Cystic lesion medial= 7.5 x 6.2 x 6.1 cm Bladder: probable bladder wall diverticula Bilateral Jets seen: Only left jet visualized There is no evidence for hydronephrosis at this point in time. No nephrolithiasis is seen. No solid masses are identified. The urinary bladder is anechoic. Bilateral ureteral jets are seen. IMPRESSION: Renal cystic changes noted.
== END | disposition home or self-care (01) ==
LOC: RADUSWWP 09:36
PROVIDERS: ATTEND Physician Assistant
DX: N28.1 Cyst of kidney, acquired (principal)
CPT/HCPCS: 76770

== ENCOUNTER → 2019-08-30 | Outpatient (CLI) | payer MEDICARE ==
--- NOTE | 2019-08-30 08:59 | MR ---
EXAMINATION TYPE: MR lumbar spine wo/w con DATE OF EXAM: 08/30/2019 COMPARISON: CT abdomen and pelvis December 28, 2017 HISTORY: Low Back Pain into rt leg per patient. Spondylosis, spinal stenosis, and right hip pain all per order. TECHNIQUE: Multiplanar, multisequence images of the lumbar spine is performed without and with IV contrast, util izing 7.5 mL intravenous Gadavist FINDINGS: There is artifact from posterior fusion hardware at the labeled L4-L5 level. Persistent gra de 1 anterolisthesis L4 on L5 remains present measuring 7 mm from posterior margin sagittal image 8. Vertebral body heights are maintained. Multilevel disc desiccation. Mild to moderate disc space narro wing most prominent posteriorly at L4-L5 level. Posterior disc herniations on sagittal images L2-L3 t hrough the L4-L5 levels. Small hemangioma anterior superior L1 endplate. Conus medullaris normal in p osition and signal in the mid L1 level. No suspicious postcontrast enhancement. Axial images at T12-L1 level show mild facet degenerative changes bilaterally. Axial images at L1-L2 level show [id number] facet degenerative changes and ligamentum flavum hy pertrophy effacing posterior lateral thecal sac axial image 23. There is mild/moderate broad disc bul ge without spinal canal is preserved, there is mild bilateral anterior inferior neural foraminal narr owing. Axial images at L2-L3 level show moderate broad disc bulge effacing the anterior thecal sac. There is evidence of posterior decompression with bilateral laminectomy defects and spinous process resection . Some enhancing scar tissue lateral to the spinal canal is seen. There is fairly moderate left great er than right bilateral inferior neural foraminal narrowing. Axial images at L3-L4 level show artifact from posterior fusion hardware. There are laminectomy defec ts with spinous process resection. There is moderate broad disc bulge effacing the anterior thecal sa c. There is moderate bilateral neural foraminal narrowing greater on the right encroaching along infe rior margin right L3 nerve seen best sagittal image 13 and axial image 13. Findings correlate with CT sagittal image 57. Axial images at L4-L5 level. Spondylolisthesis along with broad-based left paracentral disc protrusio n. Artifact from posterior fusion hardware. Some mild effacement of the left anterolateral thecal sac . Bilateral laminectomy defects and spinous process resection. Severe right and moderate left-sided n eural foraminal narrowing. Encroachment right L4 nerve difficult to exclude sagittal image 12 and 13 corresponding to axial image 8. Axial images at L5-S1 level show sacralized L5 vertebra bilaterally. Spinal canal is preserved. Bilat eral neural foramina are patent. Mildly distended bladder extends to upper sacral level is partially imaged similar to CT. Enlarged pr ostate gland noted on CT. There is asymmetric cortical atrophy to the right kidney with simple appear ing 1.9 cm thin-walled cyst axial image 27 redemonstrated. There is redemonstration of partial visual ization of large simple appearing thin-walled cyst anterior to the left kidney. IMPRESSION: Postsurgical change mid to lower lumbar spine as detailed above. Slight grade 1 spondylo listhesis L4-L5. Sacralized L5. Multilevel degenerative changes most prominent mid to lower lumbar le vels. Encroachment right L3 and L4 nerves suspected. Further details as discussed above.
== END | disposition home or self-care (01) ==
LOC: RADMRIMAIN 07:32
PROVIDERS: ATTEND Physical Medicine & Rehabilitation
DX: M43.12 Spondylolisthesis, cervical region (principal); M47.816 Spondylosis without myelopathy or radiculopathy, lumbar region
CPT/HCPCS: 72158; A9585